=== PATIENT | female | born 2000 | race Caucasian/White ===

== ENCOUNTER 2022-02-19 17:12 | Emergency (ER) | payer MEDICAID ==
[~2022-02-19] VITALS: Ht 152.4 cm; Wt 69.9 kg
[~2022-02-19 17:12] MED LIST: IBUP-2417 PO; NAPR-1144 PO
[2022-02-19 17:55] VITALS: BP 120/82
[2022-02-19 18:28] LABS: BASOPHILS % (AUTO) 0.5 % (0-1); EOSINOPHILS # (AUTO) 0.3 X10'3 (0-0.9); HEMATOCRIT 41.2 % (35.0-45.0); HEMOGLOBIN 14.3 g/dl (12.0-16.0); LYMPHOCYTES # (AUTO) 1.8 X10'3 (1.1-4.8); LYMPHOCYTES % (AUTO) 29.6 % (21-51); MEAN CORPUSCULAR HEMOGLOBIN 33.3 PG (27.0-31.0); MEAN CORPUSCULAR HGB CONC 34.6 g/dL (33.0-36.5); MEAN CORPUSCULAR VOLUME 96.2 FL (78-98); MEAN PLATELET VOLUME 8.2 FL (7.4-10.4); MONOCYTES # (AUTO) 0.4 X10'3 (0-0.9); MONOCYTES % (AUTO) 5.9 % (2-12); NEUTROPHILS # (AUTO) 3.6 X10'3 (1.8-7.7); PLATELET COUNT 229 X10'3 (140-440); RED BLOOD COUNT 4.28 X10'6 (4.20-5.60); RED CELL DISTRIBUTION WIDTH 13.3 % (11.5-14.5); WHITE BLOOD COUNT 6.2 X10'3 (4.5-11.0)
[2022-02-19 18:32] LABS: URINE HCG NEGATIVE (NEG)
[2022-02-19 18:49] LABS: COLOR,URINE YELLOW (Yellow); GLUCOSE, URINE NEGATIVE (Neg); KETONES,URINE NEGATIVE (Neg); LEUKOCYTE ESTERASE ,URINE NEGATIVE (Neg); NITRITES, URINE NEGATIVE (Neg); OCCULT BLOOD,URINE MODERATE (Neg); PH,URINE 6.5 (4.8-8.0); PROTEIN,URINE NEGATIVE (Neg); UROBILINOGEN,URINE 0.2 E.U/dL (0.2-1.0)
[2022-02-19 18:51] LABS: UA COLLECTION TYPE CLN CATCH MIDSTREAM
[2022-02-19 18:59] LABS: WBC,URINE 0-4 /HPF (0-4)
[2022-02-19 19:00] LABS: AMORPHOUS PHOSPHATES 1+; BACTERIA,URINE FEW /HPF (Neg); CLARITY,URINE SLIGHTLY CLOUDY (Clear); SQUAMOUS EPITHELIAL CELL,UR FEW /LPF (FEW)
[2022-02-19 19:08] LABS: ALANINE AMINOTRANSFERASE 290 U/L (12-78); ALBUMIN 3.8 G/DL (3.4-5.0); ALKALINE PHOSPHATASE 94 IU/L (46-116); ANION GAP 13 (8-16); ASPARTATE AMINO TRANSFERASE 172 U/L (10-37); BILIRUBIN,TOTAL 0.6 MG/DL (0.1-1.0); BLOOD UREA NITROGEN 17 MG/DL (7-18); BUN/CREATININE RATIO 24.3 (6.6-38.0); CALCIUM 9.4 MG/DL (8.5-10.1); CHLORIDE 102 MMOL/L (99-107); GLUCOSE 92 MG/DL (70-104); LIPASE 191 U/L (73-393); POTASSIUM 3.9 MMOL/L (3.5-5.1); SODIUM 140 MMOL/L (135-145); TOTAL CARBON DIOXIDE 24.7 MMOL/L (24-32); TOTAL PROTEIN 7.7 G/DL (6.4-8.2); eGFR > 90 ML/MIN
[2022-02-19] MEDS ORDERED: sucralfate 1 gm tablet PO ONE (19:10)
[2022-02-19] MEDS ORDERED: mag hydrox/Alum hydrox/simeth 30ml oral suspension PO ONE (19:10)
[2022-02-19] MEDS ORDERED: LIDOcaine Viscous 15ml cup MM ONE (19:10)
[2022-02-19] MEDS ORDERED: PANT-47 PO (19:20)
== END 2022-02-19 19:56 | disposition home or self-care (01) ==
LOC: ER 17:13
DX: K29.00 Acute gastritis without bleeding (principal); F17.200 Nicotine dependence, unspecified, uncomplicated; Z79.899 Other long term (current) drug therapy
CPT/HCPCS: 36415; 80053; 81001; 81025; 83690; 85025; 99284

== ENCOUNTER 2024-05-31 12:09 | Emergency (ER) | payer MEDICAID ==
[~2024-05-31] VITALS: Ht 162.6 cm; Wt 68.2 kg
[~2024-05-31 12:09] MED LIST changes: +PANT-47 PO
[2024-05-31 12:15] VITALS: BP 124/82; PULSE 95; RESP 18; TEMP 97; O2SAT 99
== END 2024-05-31 16:12 | disposition left against medical advice (07) ==
LOC: ER 12:09
DX: K08.89 Other specified disorders of teeth and supporting structures (principal); Z53.21 Procedure and treatment not carried out due to patient leaving prior to being seen by health care provider

== ENCOUNTER 2024-07-05 14:12 | Emergency (ER) | payer MEDICAID ==
[~2024-07-05] VITALS: Ht 152.4 cm; Wt 69.5 kg
[2024-07-05 14:14] VITALS: BP 118/75; PULSE 92; O2SAT 99
[2024-07-05] MEDS: acetaminophen 325mg tablet PO ONE (14:36)
[2024-07-05] MEDS: ketorolac trometh 15mg/ml vial 15 MG/ML ML IM ONE (14:37)
[2024-07-05] MEDS: mupirocin 2% ointment 22GM TP STA (15:16)
[2024-07-05 15:32] VITALS: RESP 16
[2024-07-05] MEDS: HYDROcodone/acetaminophen 5mg/325mg tablet PO ONE (15:32)
[2024-07-05 15:37] VITALS: TEMP 97.7
== END 2024-07-05 15:38 | disposition home or self-care (01) ==
LOC: ER 14:13
DX: T23.0 Burn of unspecified degree of wrist and hand (principal); T22.011A Burn of unspecified degree of right forearm, initial encounter; X08.8XXA Exposure to other specified smoke, fire and flames, initial encounter; Y93.89 Activity, other specified; Y92.89 Other specified places as the place of occurrence of the external cause; Y99.8 Other external cause status
CPT/HCPCS: 16020; 96372; 99283; J1885; A6258